=== PATIENT | male | born 1995 | race African-American/Black ===

== ENCOUNTER 2022-06-18 08:16 | Emergency (ER) | payer MEDICAID ==
[~2022-06-18] VITALS: Ht 182.9 cm; Wt 91.0 kg
[2022-06-18 08:40] VITALS: BP 138/81
[2022-06-18] MEDS ORDERED: MUPI15CR11 TP (11:01)
== END 2022-06-18 11:52 | disposition home or self-care (01) ==
LOC: ER 08:16
DX: L73.9 Follicular disorder, unspecified (principal)
CPT/HCPCS: 99283